=== PATIENT | male | born 1995 | race Two or more races ===

== ENCOUNTER 2019-09-20 21:13 | Emergency (ER) | payer SELFPAY | END 2019-09-20 21:52 | disposition left against medical advice (07) | LOC: ER 21:13 | DX: Z02.89 Encounter for other administrative examinations (principal); Z53.21 Procedure and treatment not carried out due to patient leaving prior to being seen by health care provider ==

== ENCOUNTER 2020-11-03 06:35 | Emergency (ER) | payer SELFPAY ==
[~2020-11-03] VITALS: Ht 165.1 cm; Wt 59.0 kg
[2020-11-03 07:33] VITALS: BP 139/96
[2020-11-03] MEDS ORDERED: BENZOCAINE (DENTAL) 20 % SPRAY 60ML MT ONE (08:00)
== END 2020-11-03 08:13 | disposition home or self-care (01) ==
LOC: ER 06:35
DX: K06.1 Gingival enlargement (principal); F17.210 Nicotine dependence, cigarettes, uncomplicated

== ENCOUNTER 2022-05-01 05:03 | Emergency (ER) | payer MEDICAID ==
[~2022-05-01] VITALS: Ht 160 cm; Wt 140.0 kg
[2022-05-01] MEDS ORDERED: HYDROcodone-ACET 5/325MG TAB PO ONE (08:15)
[2022-05-01 12:49] VITALS: BP 124/84
== END 2022-05-01 13:11 | disposition home or self-care (01) ==
LOC: EDBD 05:03 → ER 05:03
DX: S02.85XA Fracture of orbit, unspecified, initial encounter for closed fracture (principal); S02.2XXA Fracture of nasal bones, initial encounter for closed fracture; J45.909 Unspecified asthma, uncomplicated; Z20.822 Contact with and (suspected) exposure to COVID-19; X58.XXXA Exposure to other specified factors, initial encounter; Y93.89 Activity, other specified; Y92.89 Other specified places as the place of occurrence of the external cause; Y99.8 Other external cause status
CPT/HCPCS: 36415; 70450; 70480; 70486; 87426